=== PATIENT | male | born 1960 | race Caucasian/White ===

== ENCOUNTER 2016-05-14 05:39 | Day surgery (SDC) ==
[2016-05-14] MEDS ORDERED: LR 1,000 ML ONE (06:13)
[2016-05-14] MEDS ORDERED: MYLICON DROPS (DOSE) MISC ONE (08:00)
[2016-05-14 09:32] VITALS: BP 114/74
[2016-05-14] MEDS ORDERED: FENTANYL ONE (09:47)
[2016-05-14] MEDS ORDERED: VERSED ONE (09:47)
[2016-05-14] MEDS ORDERED: DIPRIVAN 1% ONE (09:48)
[2016-05-14] MEDS ORDERED: EPHEDRINE ONE (09:57)
[2016-05-14] MEDS ORDERED: XYLOCAINE-MPF 2% ONE (09:57)
[2016-05-14] MEDS ORDERED: SODIUM CHLORIDE 0.9% 10 ML ONE (09:57)
--- NOTE | 2016-05-15 21:00 | OPERATIVE NOTE ---
PROCEDURE DATE: 05/14/2016 REFERRING PHYSICIAN: Dr. Ross Espinoza MD. INDICATION FOR PROCEDURE: 1. Dysphagia. 2. Documented cricopharyngeal achalasia. 3. Nonsteroidal antiinflammatory drug use. 4. Unplanned weight loss. PROCEDURE PERFORMED: Esophagogastroduodenoscopy with dilation. CONSENT: Informed consent was obtained from the patient prior to the procedure. The risks, benefits, and alternatives were discussed. MEDICATIONS: The patient received monitored anesthesia care. PERFORMING PHYSICIAN: Kandace Miranda MD. ASSISTANTS: 1. BLAYNE Iqbal. 2. Clara Kellogg RN. 3. Pratik Pro CRNA. 4. David Herrera MD (Anesthesia). COMPLICATIONS: There were no complications. ESTIMATED BLOOD LOSS: Less than 1-2 mL. SPECIMENS REMOVED: None. FINDINGS: After sedation was achieved, the upper endoscope was inserted to the 2nd portion of the duodenum. The hypopharynx appeared endoscopically normal. There was moderate increased resistance at the upper esophageal sphincter consistent with the patient's diagnosis of cricopharyngeal achalasia. The tubular esophagus appeared grossly normal. The GE junction was measured at 45 cm from the incisors. In the gastric lumen, there were scattered erosions throughout the gastric lumen and in the fundus consistent with erosive gastritis. The pylorus appeared endoscopically normal. There was erythema in the duodenal bulb, consistent with duodenitis but the 2nd portion of the duodenum appeared endoscopically normal. After the exam was complete, the scope was retracted into the gastric lumen. A guidewire was placed through the scope. Using the guidewire, the esophagus was dilated using a Savary dilator 51-[place] and 54- [place] with 1 pass with each dilator. On 2nd look endoscopy, there was a small amount heme at both the upper esophageal sphincter and the lower esophageal sphincter. There was also decreased resistance consistent with a successful dilation. However, there was a small superficial laceration in the gastric mucosa from the guidewire. There was minimal bleeding, and hemostasis was observed. After the exam was complete, the lumen was decompressed and the scope was removed without incident. IMPRESSION: 1. Cricopharyngeal achalasia. 2. Erosive gastritis. 3. Duodenitis. 4. Successful esophageal dilation. 5. Superficial laceration in the gastric mucosa secondary to guidewire placement. RECOMMENDATION: 1. Begin omeprazole 40 mg daily. 2. Avoid nonsteroidal antiinflammatory drugs. 3. Because of the presence of the erosive gastritis, we will ask the patient to undergo Helicobacter pylori breath testing in the office. 4. We will proceed with a colonoscopy as previously scheduled.
--- NOTE | 2016-05-15 21:02 | OPERATIVE NOTE ---
PROCEDURE DATE: 05/14/2016 REFERRING PHYSICIAN: Dr. Ross Espinoza MD. INDICATION FOR PROCEDURE: 1. Unplanned weight loss. 2. Family history of colon cancer. 3. Sister with a personal history of breast cancer. PROCEDURE PERFORMED: 1. Colonoscopy with polypectomy. 2. Colonoscopy with biopsy. PERFORMING PHYSICIAN: Kandace Miranda MD. ASSISTANTS: 1. BLAYNE Iqbal. 2. Clara Kellogg, RN 3. Fabiola Pro CRNA. 4. David Herrera MD (Anesthesia). COMPLICATIONS: There were no complications. ESTIMATED BLOOD LOSS: 1-2 mL. SPECIMENS REMOVED: 1. Polyp at 55 cm. 2. Random colon biopsies. CECAL INTUBATION TIME: 7 minutes. WITHDRAWAL TIME: 14 minutes. PREP QUALITY: Fair to poor. FINDINGS: After the EGD was performed, the pediatric colonoscope was inserted to the terminal ileum. The terminal ileum, ileocecal valve, and appendiceal orifice appeared endoscopically normal. Throughout the colon, there was pandiverticulosis. There was a 5-6 mm sessile polyp at 55 cm that was removed using snare cautery. Random biopsies were taken throughout the entire colon. Also scattered throughout the colon, there were multiple small to medium nonbleeding AVMs. There was also a nonspecific rectal inflammation. In the upper rectum, there were internal hemorrhoids, grade 2. On retroflexed view, there were large external hemorrhoids with no stigmata of bleeding. There were no polyps or masses found. After the exam was complete, the lumen was decompressed and the scope was removed without incident. IMPRESSION: 1. Await biopsy results. 2. High-fiber diet. 3. Repeat colonoscopy in 5 years. 4. There were no findings to explain the patient's weight loss. We will reassess his weight when he returns to clinic. If his weight loss continues, I will strongly considered obtaining a chest, abdomen, pelvis computed tomography scan for further evaluation. 5. We will have the patient return to clinic in 4-6 weeks to assess interval progress.
== END 2016-05-14 09:45 | disposition home or self-care (01) ==
LOC: ENDO 05:39
PROVIDERS: ATTEND Internal Medicine Gastroenterology
DX: K22.0 Achalasia of cardia (principal); D12.5 Benign neoplasm of sigmoid colon; R13.12 Dysphagia, oropharyngeal phase; K64.1 Second degree hemorrhoids; K64.4 Residual hemorrhoidal skin tags; K29.80 Duodenitis without bleeding; K29.60 Other gastritis without bleeding; D64.9 Anemia, unspecified; R63.4 Abnormal weight loss; K57.30 Diverticulosis of large intestine without perforation or abscess without bleeding; Z85.818 Personal history of malignant neoplasm of other sites of lip, oral cavity, and pharynx; Z80.0 Family history of malignant neoplasm of digestive organs; Z80.3 Family history of malignant neoplasm of breast; Z92.3 Personal history of irradiation; Z92.21 Personal history of antineoplastic chemotherapy; G89.29 Other chronic pain; M54.9 Dorsalgia, unspecified; N40.0 Benign prostatic hyperplasia without lower urinary tract symptoms; Z87.442 Personal history of urinary calculi; K55.20 Angiodysplasia of colon without hemorrhage; G47.33 Obstructive sleep apnea (adult) (pediatric); Z86.711 Personal history of pulmonary embolism; M19.90 Unspecified osteoarthritis, unspecified site; Z79.1 Long term (current) use of non-steroidal anti-inflammatories (NSAID)
CPT/HCPCS: 88305; 88313; J2250; J3010; J7120